=== PATIENT | male | born 1990 | race Caucasian/White ===

== ENCOUNTER 2019-03-10 09:13 | Day surgery (SDC) | payer OTHER ==
[~2019-03-10] VITALS: Ht 193 cm; Wt 122.0 kg
[~2019-03-10 09:13] MED LIST: LIDOCAINE 1% MDV 20ML VIAL SQ PRN; LR 1,000 ML IV ONE; MULTCAP PO; ceFAZolin SOD 2 GM in IV 1 EA IV ONE
[2019-03-10] MEDS ORDERED: MIDAZOLAM INJ 2 MG/2 ML VIAL (J2250) As Ordered ONE (10:12)
[2019-03-10] MEDS ORDERED: PROPOFOL 200 MG/20 ML VIAL As Ordered ONE (10:12)
[2019-03-10] MEDS ORDERED: fentaNYL 100 MCG/2 ML INJECTION (J3010) As Ordered ONE (10:12)
[2019-03-10] MEDS ORDERED: ONDANSETRON 4MG/2ML VIAL (J2405) As Ordered ONE (10:13)
[2019-03-10] MEDS ORDERED: dexameTHASONE 4 MG/ML 1ML VIAL (J1100) As Ordered ONE (10:13)
[2019-03-10] MEDS ORDERED: LIDOCAINE 2% INJ 100 MG/5 ML SDV (FOR ANES.) As Ordered ONE (10:13)
[2019-03-10] MEDS ORDERED: BUPIVACAINE HCL 0.25% 30 ML VIAL As Ordered ONE (12:12)
[2019-03-10] MEDS ORDERED: LIDOCAINE 1% SDV INJ 30 ML VIAL As Ordered ONE (12:12)
--- NOTE | 2019-03-10 12:54 | ROOPDOC ---
[facility] Report Of Operation Report of Operation DATE OF PROCEDURE: 03/10/19 PREPROCEDURE DIAGNOSES: Sterilization. POSTPROCEDURE DIAGNOSES: Sterilization. PROCEDURE: Vasectomy. SURGEON: Lucero Farrell MD WATER PIPE INSTALLER: None ANESTHESIA: Monitored Anesthesia Care (MAC) OPERATIVE INDICATIONS: This is a 28 year old male brought to the operating room for a vasectomy. DESCRIPTION OF PROCEDURE: Under satisfactory local anesthesia utilizing 1% lidocaine and 0.25% marcaine, the bilateral vasectomy was performed. The patient was prepped with betadine and draped in the usual fashion. At first, the left vas deferens was approached. After it was localized under the skin, it was infiltrated with anesthetic and after 2 minutes a small incision was made in the upper scrotum, the vas grasped with the vas clamp and was isolated. The incision was made over the vas capsule to localize the vas. Then the vas was grasped with a vas clamp, cut on either side, and ligated with metal clips on both sides. The ends of the vas were cauterized with electo-cautery. After control all small bleeding with the electro-cautery the skin was sealed with Dermabond. There was no active bleeding. The same procedure was performed on the right side. The patient tolerated the procedure well. ESTIMATED BLOOD LOSS: Approximately 5 mL. COMPLICATIONS: None. SPECIMENS: Segments of right and left vasa deferentia. PLAN: He was advised not to participate in sexual intercourse without contraception until we have done a semen analysis and confirmed the absence of sperm. We will do this in 8 weeks and call him with the results. LUCERO FARRELL MD Mar 10, 2019 12:54
[2019-03-10 13:10] VITALS: BP 133/82
[2019-03-10] MEDS ORDERED: NORCO, ANEXSIA 5/325MG TABLET (HYDROcodone/ACETAMINOPHEN) PO PRN (13:15)
[2019-03-10] MEDS ORDERED: ONDANSETRON 4MG/2ML VIAL (J2405) IV PRN (13:15)
[2019-03-10] MEDS ORDERED: LR 1,000 ML IV SCH (13:15)
[2019-03-10] MEDS ORDERED: fentaNYL 100 MCG/2 ML INJECTION (J3010) IV PRN (13:15)
== END 2019-03-10 14:10 | disposition home or self-care (01) ==
LOC: M SDC 09:13
PROVIDERS: ATTEND Urology
DX: Z30.2 Encounter for sterilization (principal)
CPT/HCPCS: 55250; 88302; J0690; J1100; J2250; J2405; J3010